=== PATIENT | male | born 1940 | race Caucasian/White ===

== ENCOUNTER 2021-07-30 15:45 | Emergency (ER) | payer OTHER, MEDICARE ==
[2021-07-30 16:01] VITALS: BMI 16.5
[2021-07-30 17:19] LABS: ALBUMIN 3.3 g/dl (3.4-5.0); BILIRUBIN,TOTAL 1.5 mg/dl (0.2-1); CALCIUM 9.3 mg/dl (8.5-10); TOT PROT 5.8 g/dl (6.4-8.2)
[2021-07-30 18:02] LABS: BASO % 0.6 % (0-2.0); EOS % 0.2 % (0-4.5); HEMATOCRIT 36.2 % (35.4-49); HEMOGLOBIN 12.8 GM/dL (11.7-16.9); LYMPH % 10.3 % (8-40); MCH 32.5 pg (25.7-33.7); MCHC 35.3 g/dl (32.0-35.9); MEAN CELL VOLUME 92.1 fl (80-96); MEAN PLT VOLUME 7.9 fl (7.5-11.1); NEUT % 71.9 % (42.8-82.8); PLATELET COUNT 137 10^3/uL (134-434); RBC 3.93 M/mm3 (4.00-5.60); RDW 13.5 % (11.9-15.9); WHITE BLOOD COUNT 5.6 K/mm3 (4.0-10.0)
[2021-07-30 18:15] LABS: EPITHELIAL CELLS FEW /hpf
[2021-07-30 19:59] VITALS: BP 119/76; PULSE 79; TEMP 97.8
== END 2021-07-30 20:00 | disposition home or self-care (01) ==
LOC: FER 15:45
DX: R53.1 Weakness (principal); W19.XXXA Unspecified fall, initial encounter
CPT/HCPCS: 36415; 70450-TC; 72125-TC; 80053; 81003; 81015; 82550; 82553; 84484; 85025; 93005; 99285-25; C9803; U0003; U0005

== ENCOUNTER 2024-04-24 11:27 | Inpatient (IN) | payer OTHER, MEDICARE ==
[2024-04-24] MEDS: LACTATED RINGERS SOLUTION 1000 ML INFUS.BAG IV ONE (13:32)
[2024-04-24 13:40] LABS: BASO % 0.7 % (0-2.0); EOS % 1.1 % (0-4.5); HEMATOCRIT 33.5 % (35.4-49); HEMOGLOBIN 11.4 GM/dL (11.7-16.9); LYMPH % 13.5 % (8-40); MEAN CELL VOLUME 91.3 fl (80-96); MEAN PLT VOLUME 8.2 fl (7.5-11.1); NEUT % 73.7 % (42.8-82.8); PLATELET COUNT 200 10^3/uL (134-434); RBC 3.67 M/mm3 (4.00-5.60); RDW 13.1 % (11.9-15.9); WHITE BLOOD COUNT 7.8 K/mm3 (4.0-10.0)
[2024-04-24 13:43] LABS: CHLORIDE 107 mmol/L (98-107); POTASSIUM 4.1 mmol/L (3.5-5.1); SODIUM 139 mmol/L (136-145)
[2024-04-24 13:49] LABS: GLUCOSE,RANDOM 103 mg/dL (74-106)
[2024-04-24 13:50] LABS: CREATININE 0.9 mg/dL (0.55-1.3)
[2024-04-24 13:51] LABS: TOT PROT 6.1 g/dl (6.4-8.2)
[2024-04-24 13:52] LABS: ALK PHOS 59 U/L (45-117)
[2024-04-24 13:57] LABS: ALBUMIN 2.8 g/dl (3.4-5.0); ANION GAP 7 mmol/L (4-13); BLOOD UREA NITROGEN 16.2 mg/dL (7-18); CO2 25 mmol/L (21-32)
[2024-04-24 14:05] LABS: SGOT/AST 18 U/L (15-37); SGPT/ALT 9 U/L (13-61)
[2024-04-24 14:23] LABS: CALCIUM < 5.0 mg/dL (8.5-10.1)
[2024-04-24] MEDS: CEFTRIAXONE 1 GM in DEXTROSE 5%-WATER - 100 ML IVPB ONE (15:25)
[2024-04-24] MEDS ORDERED: CALCIUM GLUCONATE 10% - 1,000 MG/10 ML VIAL ONE (15:26)
[2024-04-24] MEDS ORDERED: AMPICILLIN NA/SULBACTAM NA 3 GM/100 ML BAG IVPB ONE (15:28)
[2024-04-24 15:41] LABS: EPI CELLS 12 /uL (0-25.1); HYALINE CASTS 0 /uL (0-3.1); PH,URINE 7.5 (5.0-8.0); URINE APPEARANCE CLEAR; URINE BILIRUBIN NEGATIVE (NEGATIVE); URINE COLOR YELLOW; URINE GLUCOSE (UA) NEGATIVE (NEGATIVE); URINE KETONE NEGATIVE (NEGATIVE); URINE LEUK ESTERASE NEGATIVE (NEGATIVE); URINE NITRITE POSITIVE (NEGATIVE); URINE PROTEIN NEGATIVE (NEGATIVE); URINE RBC 12 /uL (0-23.9); URINE WBC 7 /uL (0-25.8)
[2024-04-24] MEDS: AMPICILLIN NA/SULBACTAM NA 3 GM in SODIUM CHLORIDE 100 ML IVPB SCH (15:41)
[2024-04-24 16:13] LABS: URINE BACTERIA 712 /uL (0-1359); YEAST NONE SEEN (NEGATIVE)
[2024-04-24] MEDS: LACTATED RINGERS SOLUTION 1,000 ML/1,000 ML INFUS.BAG IV SCH (16:17)
[2024-04-24] MEDS: CALCIUM GLUCONATE 10% - 1,000 MG/10 ML VIAL IVPB ONE (16:17)
[2024-04-24] MEDS: CALCIUM GLUC IN NACL, ISO-OSM 1 GM/50 ML BAG IVPB ONE (17:11)
[2024-04-24] MEDS: AZITHROMYCIN IVPB 500 MG in DEXTROSE 5%-WATER - 250 ML IVPB ONE (18:45)
[2024-04-24] MEDS ORDERED: AZITHROMYCIN IVPB 500 MG/250 ML BAG IVPB ONE (18:46)
[2024-04-24] MEDS: HEPARIN NA (PORCINE) 5,000 UNITS/ML 1ML VIAL SQ SCH (21:01)
[2024-04-24 23:08] VITALS: BMI 16.2
[2024-04-25 08:22] LABS: BASO % 0.5 % (0-2.0); EOS % 1.6 % (0-4.5); HEMATOCRIT 29.9 % (35.4-49); HEMOGLOBIN 10.6 GM/dL (11.7-16.9); LYMPH % 14.8 % (8-40); MCH 31.8 pg (25.7-33.7); MCHC 35.5 g/dl (32.0-35.9); MEAN CELL VOLUME 89.8 fl (80-96); MEAN PLT VOLUME 8.2 fl (7.5-11.1); MONO % 9.9 % (3.8-10.2); NEUT % 73.2 % (42.8-82.8); PLATELET COUNT 194 10^3/uL (134-434); RBC 3.32 M/mm3 (4.00-5.60); RDW 12.8 % (11.9-15.9); WHITE BLOOD COUNT 7.4 K/mm3 (4.0-10.0)
[2024-04-25 08:51] LABS: POTASSIUM 3.8 mmol/L (3.5-5.1)
[2024-04-25 08:56] LABS: BLOOD UREA NITROGEN 11.7 mg/dL (7-18)
[2024-04-25 08:59] LABS: CREATININE 0.7 mg/dL (0.55-1.3)
[2024-04-25 09:01] LABS: CALCIUM 8.8 mg/dL (8.5-10.1)
[2024-04-26 08:30] LABS: BASO % 0.6 % (0-2.0); EOS % 2.5 % (0-4.5); HEMATOCRIT 30.4 % (35.4-49); HEMOGLOBIN 10.7 GM/dL (11.7-16.9); LYMPH % 13.8 % (8-40); MCH 31.8 pg (25.7-33.7); MCHC 35.3 g/dl (32.0-35.9); MEAN CELL VOLUME 90.1 fl (80-96); MEAN PLT VOLUME 8.1 fl (7.5-11.1); MONO % 11.1 % (3.8-10.2); PLATELET COUNT 223 10^3/uL (134-434); RBC 3.37 M/mm3 (4.00-5.60); RDW 12.6 % (11.9-15.9); WHITE BLOOD COUNT 8.1 K/mm3 (4.0-10.0)
[2024-04-26 08:34] LABS: POTASSIUM 3.8 mmol/L (3.5-5.1)
[2024-04-26 08:36] LABS: ALBUMIN 2.4 g/dl (3.4-5.0)
[2024-04-26 08:39] LABS: CREATININE 0.8 mg/dL (0.55-1.3)
[2024-04-26 08:41] LABS: BILIRUBIN,TOTAL 0.9 mg/dL (0.2-1); TOT PROT 5.2 g/dl (6.4-8.2)
[2024-04-26] MEDS: LOSARTAN POTASSIUM 50 MG TABLET PO ONE (11:30)
[2024-04-27] MEDS: LOSARTAN POTASSIUM 50 MG TABLET PO ONE (03:44)
[2024-04-27 08:36] LABS: POTASSIUM 4.3 mmol/L (3.5-5.1)
[2024-04-27 08:41] LABS: CALCIUM 8.9 mg/dL (8.5-10.1)
[2024-04-27 08:42] LABS: ALBUMIN 2.6 g/dl (3.4-5.0); BLOOD UREA NITROGEN 8.8 mg/dL (7-18); MAGNESIUM 1.8 mg/dL (1.8-2.4)
[2024-04-27 08:45] LABS: PHOSPHOROUS 3.3 mg/dL (2.5-4.9)
[2024-04-27 08:46] LABS: BILIRUBIN,TOTAL 0.6 mg/dL (0.2-1)
[2024-04-28 08:10] LABS: BASO % 0.3 % (0-2.0); EOS % 1.3 % (0-4.5); HEMATOCRIT 32.7 % (35.4-49); HEMOGLOBIN 11.3 GM/dL (11.7-16.9); LYMPH % 6.9 % (8-40); MCH 31.4 pg (25.7-33.7); MCHC 34.6 g/dl (32.0-35.9); MEAN CELL VOLUME 90.8 fl (80-96); MEAN PLT VOLUME 7.9 fl (7.5-11.1); MONO % 13.4 % (3.8-10.2); NEUT % 78.1 % (42.8-82.8); PLATELET COUNT 262 10^3/uL (134-434); RBC 3.61 M/mm3 (4.00-5.60); WHITE BLOOD COUNT 7.3 K/mm3 (4.0-10.0)
[2024-04-28 08:12] LABS: POTASSIUM 3.6 mmol/L (3.5-5.1)
[2024-04-28 08:16] LABS: CALCIUM 8.6 mg/dL (8.5-10.1)
[2024-04-28 08:17] LABS: ALBUMIN 2.5 g/dl (3.4-5.0); BLOOD UREA NITROGEN 9.9 mg/dL (7-18)
[2024-04-28 08:20] LABS: CREATININE 0.9 mg/dL (0.55-1.3)
[2024-04-28 08:21] LABS: BILIRUBIN,TOTAL 0.5 mg/dL (0.2-1); TOT PROT 5.7 g/dl (6.4-8.2)
[2024-04-28] MEDS ORDERED: AMPICILLIN NA/SULBACTAM NA 3 GM in SODIUM CHLORIDE 100 ML IVPB ONE (12:00)
[2024-04-28] MEDS: SODIUM CHLORIDE 1,000 ML IV SCH ×2 (12:35→18:21)
[2024-04-28] MEDS: ACETAMINOPHEN 1000 MG/100 ML BAG IVPB PRN (12:36)
[2024-04-28] MEDS: AMPICILLIN NA/SULBACTAM NA 3 GM in SODIUM CHLORIDE 100 ML IVPB SCH (16:10)
[2024-04-28] MEDS ORDERED: AMOX TR/POT CLAV 875MG/125MG TABLETS (FP) PO SCH (17:30)
[2024-04-28] MEDS: REMDESIVIR 200 MG in SODIUM CHLORIDE 250 ML IVPB ONE (18:21)
[2024-04-29 08:24] LABS: BASO % 0.3 % (0-2.0); EOS % 0.1 % (0-4.5); HEMATOCRIT 31.2 % (35.4-49); HEMOGLOBIN 10.6 GM/dL (11.7-16.9); MCH 31.2 pg (25.7-33.7); MEAN CELL VOLUME 91.7 fl (80-96); MEAN PLT VOLUME 7.5 fl (7.5-11.1); MONO % 15.2 % (3.8-10.2); NEUT % 72.4 % (42.8-82.8); PLATELET COUNT 247 10^3/uL (134-434); RDW 12.7 % (11.9-15.9); WHITE BLOOD COUNT 7.1 K/mm3 (4.0-10.0)
[2024-04-29 08:28] LABS: POTASSIUM 3.6 mmol/L (3.5-5.1)
[2024-04-29 08:30] LABS: ALBUMIN 2.3 g/dl (3.4-5.0); CALCIUM 7.9 mg/dL (8.5-10.1)
[2024-04-29 08:31] LABS: BLOOD UREA NITROGEN 14.9 mg/dL (7-18)
[2024-04-29 08:35] LABS: BILIRUBIN,TOTAL 0.4 mg/dL (0.2-1); TOT PROT 5.2 g/dl (6.4-8.2)
[2024-04-29] MEDS: LOSARTAN POTASSIUM 50 MG TABLET PO SCH (09:23)
[2024-04-29] MEDS: REMDESIVIR 100 MG in SODIUM CHLORIDE 250 ML IVPB SCH (09:24)
[2024-04-29] MEDS: CALCIUM 250MG/VIT-D 125 UNITS 1 COMBO TABLET PO SCH (15:43)
[2024-04-29] MEDS ORDERED: REMDESIVIR 100 MG in SODIUM CHLORIDE 270 ML IVPB ONE (16:00)
[2024-04-30 08:22] LABS: BASO % 0.4 % (0-2.0); EOS % 0.1 % (0-4.5); HEMATOCRIT 34.2 % (35.4-49); HEMOGLOBIN 11.9 GM/dL (11.7-16.9); LYMPH % 11.4 % (8-40); MCH 31.1 pg (25.7-33.7); MCHC 34.8 g/dl (32.0-35.9); MEAN CELL VOLUME 89.3 fl (80-96); MEAN PLT VOLUME 7.6 fl (7.5-11.1); MONO % 9.6 % (3.8-10.2); NEUT % 78.5 % (42.8-82.8); PLATELET COUNT 263 10^3/uL (134-434); RBC 3.83 M/mm3 (4.00-5.60); RDW 12.8 % (11.9-15.9); WHITE BLOOD COUNT 8.8 K/mm3 (4.0-10.0)
[2024-04-30 08:38] LABS: POTASSIUM 3.4 mmol/L (3.5-5.1)
[2024-04-30 08:41] LABS: ALBUMIN 2.1 g/dl (3.4-5.0)
[2024-04-30 08:44] LABS: CREATININE 0.8 mg/dL (0.55-1.3)
[2024-04-30 08:45] LABS: BILIRUBIN,TOTAL 0.4 mg/dL (0.2-1); TOT PROT 5.1 g/dl (6.4-8.2)
[2024-04-30] MEDS: POTASSIUM CHLORIDE ORAL LIQUID 20 MEQ/15 ML PO ONE (12:51)
[2024-05-02] MEDS ORDERED: hydrALAZINE HCL 20 MG/ML VIAL IVPUSH PRN (19:07)
[2024-05-02] MEDS ORDERED: LOSARTAN POTASSIUM 25 MG TABLET PO SCH (19:07)
[2024-05-02] MEDS ORDERED: QUEtiapine FUMARATE 25 MG TABLET ONE (21:06)
[2024-05-02] MEDS: QUEtiapine FUMARATE 50 MG TABLET PO SCH (21:41)
[2024-05-03] MEDS: LOSARTAN POTASSIUM 50 MG TABLET PO SCH (09:58)
[2024-05-03] MEDS: POTASSIUM CHLORIDE ORAL LIQUID 20 MEQ/15 ML PO ONE (14:34)
[2024-05-03] MEDS ORDERED: QUEtiapine FUMARATE 25 MG TABLET ONE (21:23)
[2024-05-03] MEDS: AMINO ACIDS 4.25%/D5W 1,000 ML IV SCH (21:44)
[2024-05-04 09:39] LABS: BASO % 0.3 % (0-2.0); EOS % 0.3 % (0-4.5); HEMATOCRIT 35.6 % (35.4-49); HEMOGLOBIN 11.9 GM/dL (11.7-16.9); LYMPH % 12.2 % (8-40); MCH 30.8 pg (25.7-33.7); MCHC 33.5 g/dl (32.0-35.9); MEAN CELL VOLUME 91.8 fl (80-96); MEAN PLT VOLUME 8.1 fl (7.5-11.1); MONO % 9.3 % (3.8-10.2); NEUT % 77.9 % (42.8-82.8); PLATELET COUNT 311 10^3/uL (134-434); RBC 3.88 M/mm3 (4.00-5.60); RDW 13.1 % (11.9-15.9); WHITE BLOOD COUNT 9.1 K/mm3 (4.0-10.0)
[2024-05-04 09:52] LABS: POTASSIUM 4.2 mmol/L (3.5-5.1)
[2024-05-04 10:11] LABS: CALCIUM 8.7 mg/dL (8.5-10.1)
[2024-05-04 10:12] LABS: ALBUMIN 2.3 g/dl (3.4-5.0); BLOOD UREA NITROGEN 18.6 mg/dL (7-18)
[2024-05-04 10:16] LABS: BILIRUBIN,TOTAL 0.6 mg/dL (0.2-1); CREATININE 0.8 mg/dL (0.55-1.3)
[2024-05-04 10:17] LABS: TOT PROT 5.6 g/dl (6.4-8.2)
[2024-05-04] MEDS ORDERED: QUEtiapine FUMARATE 25 MG TABLET ONE (21:06)
[2024-05-04] MEDS: ACETAMINOPHEN 1000 MG/100 ML BAG IVPB ONE (22:23)
[2024-05-05 11:20] LABS: HEMATOCRIT 33.8 % (35.4-49); HEMOGLOBIN 11.6 GM/dL (11.7-16.9); MCH 30.9 pg (25.7-33.7); MCHC 34.3 g/dl (32.0-35.9); MEAN CELL VOLUME 89.9 fl (80-96); MEAN PLT VOLUME 8.4 fl (7.5-11.1); PLATELET COUNT 338 10^3/uL (134-434); RBC 3.76 M/mm3 (4.00-5.60); RDW 13.4 % (11.9-15.9); WHITE BLOOD COUNT 13.7 K/mm3 (4.0-10.0)
[2024-05-05 11:45] LABS: POTASSIUM 3.8 mmol/L (3.5-5.1)
[2024-05-05 12:00] LABS: CALCIUM 8.2 mg/dL (8.5-10.1)
[2024-05-05 12:01] LABS: BLOOD UREA NITROGEN 21.4 mg/dL (7-18)
[2024-05-05 12:04] LABS: CREATININE 0.7 mg/dL (0.55-1.3)
[2024-05-05 12:05] LABS: BILIRUBIN,TOTAL 0.8 mg/dL (0.2-1)
[2024-05-05 12:07] LABS: TOT PROT 5.2 g/dl (6.4-8.2)
[2024-05-05] MEDS: guaiFENesin 600 MG TABLET.ER (FP) PO SCH (16:58)
[2024-05-05] MEDS: ACETAMINOPHEN 325 MG TABLET (FP) PO PRN (19:20)
[2024-05-05] MEDS ORDERED: QUEtiapine FUMARATE 25 MG TABLET ONE (20:38)
[2024-05-05] MEDS: PIPERACILLIN/TAZOB 4.5 GM 4.5 GM in DEXTROSE 5%-WATER 100 ML IVPB SCH (23:26)
[2024-05-06 10:12] LABS: HEMOGLOBIN 10.6 GM/dL (11.7-16.9); MCH 30.6 pg (25.7-33.7); MCHC 34.3 g/dl (32.0-35.9); MEAN CELL VOLUME 89.3 fl (80-96); PLATELET COUNT 320 10^3/uL (134-434); RBC 3.47 M/mm3 (4.00-5.60); RDW 13.2 % (11.9-15.9); WHITE BLOOD COUNT 8.7 K/mm3 (4.0-10.0)
[2024-05-06 10:13] LABS: BASO % 0.3 % (0-2.0); EOS % 0.1 % (0-4.5); LYMPH % 6.9 % (8-40); MEAN PLT VOLUME 8.2 fl (7.5-11.1); MONO % 8.8 % (3.8-10.2); NEUT % 83.9 % (42.8-82.8)
[2024-05-06 11:30] LABS: POTASSIUM 3.7 mmol/L (3.5-5.1)
[2024-05-06 11:47] LABS: BILIRUBIN,TOTAL 0.8 mg/dL (0.2-1)
[2024-05-06 11:51] LABS: ALBUMIN 1.9 g/dl (3.4-5.0); BLOOD UREA NITROGEN 21.3 mg/dL (7-18); CALCIUM 8.6 mg/dL (8.5-10.1)
[2024-05-06 11:53] LABS: CREATININE 0.9 mg/dL (0.55-1.3)
[2024-05-06 11:55] LABS: TOT PROT 5.3 g/dl (6.4-8.2)
[2024-05-06] MEDS: PIPERACILLIN/TAZOB 4.5 GM 4.5 GM in DEXTROSE 5%-WATER 100 ML IVPB SCH (14:52)
[2024-05-06] MEDS: ACETAMINOPHEN 1000 MG/100 ML BAG IVPB PRN (17:20)
[2024-05-06] MEDS: PIPERACILLIN/TAZOB 3.375 GM 3.375 GM in DEXTROSE 5%-WATER - 50 ML IVPB SCH (17:20)
[2024-05-06] MEDS ORDERED: QUEtiapine FUMARATE 25 MG TABLET ONE (20:53)
[2024-05-07 09:44] LABS: BASO % 0.2 % (0-2.0); EOS % 0.1 % (0-4.5); HEMATOCRIT 30.8 % (35.4-49); HEMOGLOBIN 10.6 GM/dL (11.7-16.9); LYMPH % 4.9 % (8-40); MCH 30.7 pg (25.7-33.7); MCHC 34.4 g/dl (32.0-35.9); MEAN CELL VOLUME 89.3 fl (80-96); MEAN PLT VOLUME 7.8 fl (7.5-11.1); MONO % 6.9 % (3.8-10.2); NEUT % 87.9 % (42.8-82.8); PLATELET COUNT 378 10^3/uL (134-434); RBC 3.45 M/mm3 (4.00-5.60); RDW 13.5 % (11.9-15.9); WHITE BLOOD COUNT 10.3 K/mm3 (4.0-10.0)
[2024-05-07 10:11] LABS: POTASSIUM 3.7 mmol/L (3.5-5.1)
[2024-05-07 10:17] LABS: CALCIUM 8.4 mg/dL (8.5-10.1)
[2024-05-07 10:18] LABS: ALBUMIN 1.8 g/dl (3.4-5.0); BLOOD UREA NITROGEN 23.7 mg/dL (7-18)
[2024-05-07 10:21] LABS: CREATININE 0.9 mg/dL (0.55-1.3)
[2024-05-07 10:22] LABS: BILIRUBIN,TOTAL 0.7 mg/dL (0.2-1); TOT PROT 5.2 g/dl (6.4-8.2)
[2024-05-07 10:29] LABS: EPI CELLS 6 /uL (0-25.1); HYALINE CASTS 0 /uL (0-3.1); PH,URINE 5.5 (5.0-8.0); URINE APPEARANCE CLEAR; URINE BACTERIA 9 /uL (0-1359); URINE BILIRUBIN NEGATIVE (NEGATIVE); URINE COLOR DK YELLOW; URINE GLUCOSE (UA) NEGATIVE (NEGATIVE); URINE KETONE TRACE (NEGATIVE); URINE LEUK ESTERASE NEGATIVE (NEGATIVE); URINE NITRITE NEGATIVE (NEGATIVE); URINE PROTEIN 2+ (NEGATIVE); URINE RBC 10 /uL (0-23.9); URINE WBC 26 /uL (0-25.8)
[2024-05-07] MEDS: DEXTROSE 5%-LACTATED RINGERS 1,000 ML IV SCH (11:03)
[2024-05-07] MEDS ORDERED: QUEtiapine FUMARATE 25 MG TABLET ONE (21:08)
[2024-05-08 07:49] LABS: BASO % 0.4 % (0-2.0); EOS % 0.4 % (0-4.5); HEMATOCRIT 34.5 % (35.4-49); HEMOGLOBIN 11.5 GM/dL (11.7-16.9); LYMPH % 9.9 % (8-40); MCH 30.6 pg (25.7-33.7); MCHC 33.2 g/dl (32.0-35.9); MEAN CELL VOLUME 92.3 fl (80-96); MEAN PLT VOLUME 7.7 fl (7.5-11.1); NEUT % 81.3 % (42.8-82.8); PLATELET COUNT 374 10^3/uL (134-434); RBC 3.74 M/mm3 (4.00-5.60); RDW 13.9 % (11.9-15.9); WHITE BLOOD COUNT 10.2 K/mm3 (4.0-10.0)
[2024-05-08 08:11] LABS: POTASSIUM 3.5 mmol/L (3.5-5.1)
[2024-05-08 08:14] LABS: CALCIUM 8.6 mg/dL (8.5-10.1)
[2024-05-08 08:15] LABS: ALBUMIN 1.8 g/dl (3.4-5.0); BLOOD UREA NITROGEN 26.3 mg/dL (7-18)
[2024-05-08 08:18] LABS: CREATININE 0.9 mg/dL (0.55-1.3)
[2024-05-08 08:19] LABS: BILIRUBIN,TOTAL 0.5 mg/dL (0.2-1); TOT PROT 5.6 g/dl (6.4-8.2)
[2024-05-08] MEDS ORDERED: QUEtiapine FUMARATE 25 MG TABLET ONE (21:13)
[2024-05-09 07:22] LABS: BASO % 0.3 % (0-2.0); EOS % 0.5 % (0-4.5); HEMATOCRIT 30.5 % (35.4-49); HEMOGLOBIN 10.4 GM/dL (11.7-16.9); LYMPH % 12.9 % (8-40); MEAN CELL VOLUME 91.2 fl (80-96); MEAN PLT VOLUME 7.4 fl (7.5-11.1); NEUT % 76.3 % (42.8-82.8); PLATELET COUNT 383 10^3/uL (134-434); RBC 3.35 M/mm3 (4.00-5.60); RDW 13.7 % (11.9-15.9)
[2024-05-09 07:53] LABS: POTASSIUM 3.6 mmol/L (3.5-5.1)
[2024-05-09 08:03] LABS: BLOOD UREA NITROGEN 19.9 mg/dL (7-18); CALCIUM 8.5 mg/dL (8.5-10.1)
[2024-05-09 08:08] LABS: CREATININE 0.8 mg/dL (0.55-1.3)
[2024-05-09] MEDS: DEXAMETHASONE SOD PHOSPHATE 10 MG/1 ML VIAL IVPUSH SCH (11:22)
[2024-05-09] MEDS: ACETAMINOPHEN 1000 MG/100 ML BAG IVPB ONE (13:22)
[2024-05-09] MEDS ORDERED: QUEtiapine FUMARATE 25 MG TABLET ONE (21:25)
[2024-05-10 07:53] LABS: HEMATOCRIT 33.5 % (35.4-49); HEMOGLOBIN 11.3 GM/dL (11.7-16.9); LYMPH % 6.7 % (8-40); MCH 30.5 pg (25.7-33.7); MCHC 33.8 g/dl (32.0-35.9); MEAN CELL VOLUME 90.1 fl (80-96); MEAN PLT VOLUME 7.4 fl (7.5-11.1); MONO % 5.9 % (3.8-10.2); NEUT % 87.4 % (42.8-82.8); PLATELET COUNT 453 10^3/uL (134-434); RBC 3.71 M/mm3 (4.00-5.60); RDW 13.2 % (11.9-15.9); WHITE BLOOD COUNT 9.9 K/mm3 (4.0-10.0)
[2024-05-10] MEDS ORDERED: QUEtiapine FUMARATE 25 MG TABLET ONE (21:53)
[2024-05-10] MEDS: ACETAMINOPHEN 1000 MG/100 ML BAG IVPB ONE (22:03)
[2024-05-11 10:50] VITALS: BP 159/71; PULSE 89; RESP 16; TEMP 983.2
== END 2024-05-11 11:39 | DRG 177 ==
LOC: JER 11:27 → JERBED 14:38 → J4W 20:29 → J4S 22:52
PROVIDERS: ADMIT Internal Medicine; ATTEND Internal Medicine
PROC: XW033E5 Introduction of Remdesivir Anti-infective into Peripheral Vein, Percutaneous Approach, New Technology Group 5 (ICD-10-PCS; principal; 2024-04-28)
DX: J69.0 Pneumonitis due to inhalation of food and vomit (principal); E43 Unspecified severe protein-calorie malnutrition; G93.41 Metabolic encephalopathy; U07.1 COVID-19; Z68.1 Body mass index [BMI] 19.9 or less, adult; I10 Essential (primary) hypertension; F03.90 Unspecified dementia, unspecified severity, without behavioral disturbance, psychotic disturbance, mood disturbance, and anxiety; E83.51 Hypocalcemia; E87.6 Hypokalemia; I12.9 Hypertensive chronic kidney disease with stage 1 through stage 4 chronic kidney disease, or unspecified chronic kidney disease; N18.9 Chronic kidney disease, unspecified; R13.19 Other dysphagia; R50.9 Fever, unspecified
CPT/HCPCS: 0241U-QW; 36415; 71045-TC-FY; 71250-TC; 80048; 80053; 81003; 82306; 82330; 82550; 82553; 83605; 83615; 83735; 83970; 84100; 84443; 84484; 85025; 85027; 86140; 87040; 87086; 87899; 93005; 93010; 97110-GP; 97116-GP; 97161-GP; 99285-25; J0131; J0248; J1100; J1644